=== PATIENT | male | born 1975 | race Caucasian/White ===

== ENCOUNTER 2020-05-18 09:39 | Outpatient (CLI) | payer BC ==
[2020-05-18] MEDS ORDERED: VITA1CAP PO (11:05)
[2020-05-18] MEDS ORDERED: CHOL10003 PO (11:05)
[2020-05-18] MEDS ORDERED: VITA-74 PO (11:05)
[2020-05-18] MEDS ORDERED: ASCO500T8 PO (11:05)
== END 2020-05-18 23:59 | disposition home or self-care (01) ==
LOC: STAR 09:39
PROVIDERS: ATTEND Urology
DX: Z20.828 Contact with and (suspected) exposure to other viral communicable diseases (principal); Z41.2 Encounter for routine and ritual male circumcision
CPT/HCPCS: 87635